=== PATIENT | female | born 1970 | race Caucasian/White ===

== ENCOUNTER 2016-11-19 16:57 | Emergency (ER) | payer BC ==
[~2016-11-19] VITALS: Ht 160 cm; Wt 100.0 kg
[~2016-11-19 16:57] MED LIST: ASACOL400 MG PO; AZATHIOPRINE50 MG PO; CAPITAL WITH C473 ML PO; CIPRO500 MG PO; DELZICOL400 MG PO; FLAGYL500 MG PO; FUROSEMIDE20 MG PO; KLOR-CON M2020 MEQ PO; LEVAQUIN750 MG PO; LIALDA1.2 GM PO; LORCET 5-325 M1 EACH PO; PERCOCET 5/31 TABLET PO; ROCEPHIN1 GM/50 ML IV; ROWASA 4 G4 GM/60 ML PR; TORADOL10 MG PO; TYLENOL REGULA325 MG PO; VITAMIN D2000 INTUN PO; VITAMIN D32000 UNI1 PO; ZESTRIL,PRINIVIL5 MG PO; ZOFRAN ODT4 MG PO
[2016-11-19 18:12] LABS: ADD MIUA? YES; BILIRUBIN NEGATIVE; BLOOD NEGATIVE; COLOR STRAW ((YELLOW)); GLUCOSE (STRIP) NEGATIVE; KETONES 20; LEUKOCYTES TRACE; NITRITE NEGATIVE; PROTEIN (STRIP) NEGATIVE; SPECIFIC GRAVITY 1.006 (1.000-1.030); UROBILINOGEN 0.2 MG/DL (0.2-1.0)
[2016-11-19 18:20] LABS: BACTERIA NONE SEEN /HPF; EPITHELIAL CELLS RARE /HPF; MUCUS NONE SEEN /LPF; RED BLOOD CELLS 0-5 /HPF (0-5); UCUL ADDED? NO; WHITE BLOOD CELLS 0-5 /HPF (0-5)
[2016-11-19 18:34] LABS: CHLORIDE 107 mEq/L (99-109); POTASSIUM 3.7 mEq/L (3.7-5.4); SODIUM 139 mEq/L (136-147)
[2016-11-19 18:37] LABS: GLUCOSE 100 mg/dL (70-99); HEMATOCRIT 43.4 % (36.0-46.0); MCH 32.9 PG (29.0-34.0); MCHC 34.1 G/DL (30.0-36.0); MCV 96.4 FL (83-99); MEAN PLAT.VOLUME 9.9 uM^3 (9.5-12.4); PLATELET COUNT 191 K/uL (156-360); RBC DIS.WIDTH-SD 46.3 % (39-53); WHITE BLOOD COUNT 9.5 K/uL (4.1-10.2)
[2016-11-19 18:38] LABS: ANION GAP 12 MEQ/L (2-14)
[2016-11-19 18:39] LABS: TOTAL BILIRUBIN 1.2 mg/dL (0.0-1.0)
[2016-11-19 18:40] LABS: ALKALINE PHOSPHATASE 74 IU/L (3-129)
[2016-11-19 18:41] LABS: GFR ESTIMATE (CALCULATED) > 59 mL/min/
[2016-11-19 18:42] LABS: DIRECT BILIRUBIN 0.3 mg/dL (0.0-0.3); UREA NITROGEN (BUN) 14 mg/dL (9-23)
[2016-11-19 18:44] LABS: LIPASE 9 U/L (1.0-51.0)
[2016-11-19] MEDS ORDERED: CIPRO500 MG PO (20:23)
[2016-11-19] MEDS ORDERED: KEFLEX500 MG PO (20:24)
[2016-11-19 20:33] VITALS: BP 122/82
== END 2016-11-19 20:44 | disposition home or self-care (01) ==
LOC: EME 16:57
PROVIDERS: Emergency Medicine
DX: N30.00 Acute cystitis without hematuria (principal); Z87.442 Personal history of urinary calculi
CPT/HCPCS: 71020; 74176; 80048; 80076; 81003; 83605; 83690; 85027; 87040; 93005; 99281; 99285; J2405; J7030

== ENCOUNTER 2016-12-04 00:12 | Emergency (ER) | payer BC ==
[~2016-12-04] VITALS: Ht 160 cm; Wt 100.0 kg
[~2016-12-04 00:12] MED LIST changes: +KEFLEX500 MG PO
[2016-12-04 01:19] LABS: ADD MIUA? YES; BILIRUBIN NEGATIVE; BLOOD LARGE; COLOR YELLOW ((YELLOW)); GLUCOSE (STRIP) NEGATIVE; KETONES 5; LEUKOCYTES NEGATIVE; NITRITE NEGATIVE; PROTEIN (STRIP) NEGATIVE; SPECIFIC GRAVITY 1.013 (1.000-1.030); UROBILINOGEN 0.2 MG/DL (0.2-1.0)
[2016-12-04 01:38] LABS: BACTERIA NONE SEEN /HPF; EPITHELIAL CELLS RARE /HPF; MUCUS TRACE /LPF; RED BLOOD CELLS TNTC /HPF (0-5); UCUL ADDED? NO; WHITE BLOOD CELLS 0-5 /HPF (0-5)
[2016-12-04 03:36] LABS: HEMATOCRIT 41.3 % (36.0-46.0); MCH 33.3 PG (29.0-34.0); MCHC 34.9 G/DL (30.0-36.0); MCV 95.4 FL (83-99); MEAN PLAT.VOLUME 9.3 uM^3 (9.5-12.4); PLATELET COUNT 188 K/uL (156-360); RBC DIS.WIDTH-SD 45.7 % (39-53); RED BLOOD COUNT 4.33 M/uL (3.80-5.20); WHITE BLOOD COUNT 7.2 K/uL (4.1-10.2)
[2016-12-04 03:49] LABS: CHLORIDE 108 mEq/L (99-109); POTASSIUM 3.8 mEq/L (3.7-5.4); SODIUM 140 mEq/L (136-147)
[2016-12-04 03:51] LABS: GLUCOSE 92 mg/dL (70-99)
[2016-12-04 03:52] LABS: ANION GAP 12 MEQ/L (2-14)
[2016-12-04 03:55] LABS: ALKALINE PHOSPHATASE 70 IU/L (3-129); GFR ESTIMATE (CALCULATED) > 59 mL/min/
[2016-12-04 03:56] LABS: UREA NITROGEN (BUN) 14 mg/dL (9-23)
[2016-12-04 03:58] LABS: LIPASE 11 U/L (1.0-51.0)
[2016-12-04] MEDS ORDERED: ZOFRAN8 MG PO (04:05)
[2016-12-04] MEDS ORDERED: PERCOCET 5/31 TABLET PO (04:05)
[2016-12-04] MEDS ORDERED: TORADOL10 MG PO (04:18)
[2016-12-04 04:44] VITALS: BP 120/76
== END 2016-12-04 04:45 | disposition home or self-care (01) ==
LOC: EME 00:12
PROVIDERS: Emergency Medicine
DX: N23 Unspecified renal colic (principal); R31.9 Hematuria, unspecified; K51.90 Ulcerative colitis, unspecified, without complications; M17.0 Bilateral primary osteoarthritis of knee; Z87.442 Personal history of urinary calculi; F32.9 Major depressive disorder, single episode, unspecified
CPT/HCPCS: 80053; 81003; 83605; 83690; 85027; 87040; 99281; 99285; J1885; J2405; J7030

== ENCOUNTER 2017-09-09 15:50 | Emergency (ER) | payer BC ==
[~2017-09-09] VITALS: Ht 157.5 cm; Wt 100.9 kg
[~2017-09-09 15:50] MED LIST changes: +ZOFRAN8 MG PO
[2017-09-09 16:47] LABS: BASOPHIL (%) 0.7 % (0-1); BASOPHIL COUNT 0.1 K/uL (0-0.1); EOSINOPHIL (%) 0.3 % (0-5); HEMATOCRIT 41.9 % (36.0-46.0); HEMOGLOBIN 15.1 G/DL (11.9-15.5); IMMATURE GRANULOCYTE (%) 0.1 % (0.0-0.7); LYMPHOCYTE COUNT 0.6 K/uL (1.0-2.8); MCH 34.3 PG (29.0-34.0); MCV 95.2 FL (83-99); MONOCYTE (%) 5.7 % (3-12); MONOCYTE COUNT 0.4 K/uL (0-0.8); NEUTROPHIL (%) 85.2 % (45-76); PLATELET COUNT 196 K/uL (156-360); RBC DIS.WIDTH-SD 45.6 % (39-53)
[2017-09-09 16:57] LABS: ALBUMIN 4.6 g/dL (3.2-4.8)
[2017-09-09 16:58] LABS: CHLORIDE 109 mEq/L (99-109); SODIUM 138 mEq/L (136-147)
[2017-09-09 17:00] LABS: GLUCOSE 102 mg/dL (70-99); TOTAL PROTEIN 7.8 g/dL (6.4-8.3)
[2017-09-09 17:02] LABS: TOTAL BILIRUBIN 0.7 mg/dL (0.0-1.0)
[2017-09-09 17:03] LABS: ALKALINE PHOSPHATASE 80 IU/L (3-129)
[2017-09-09 17:04] LABS: CREATININE 0.9 mg/dL (0.6-1.3); GFR ESTIMATE (CALCULATED) > 59 mL/min/
[2017-09-09 17:05] LABS: AST (GOT) 18 IU/L (2-34); UREA NITROGEN (BUN) 17 mg/dL (9-23)
[2017-09-09 17:06] LABS: ALT (GPT) 17 IU/L (3-49)
[2017-09-09 17:12] LABS: QUANTITATIVE HCG < 4.0 MIU/ML
[2017-09-09 17:15] LABS: APPEARANCE CLEAR ((CLEAR)); BILIRUBIN NEGATIVE; BLOOD LARGE; COLOR YELLOW ((YELLOW)); GLUCOSE (STRIP) NEGATIVE; KETONES 5; LEUKOCYTES NEGATIVE; NITRITE NEGATIVE; PROTEIN (STRIP) NEGATIVE; SPECIFIC GRAVITY 1.008 (1.000-1.030); UROBILINOGEN 0.2 MG/DL (0.2-1.0)
[2017-09-09 17:17] LABS: BACTERIA RARE /HPF; EPITHELIAL CELLS RARE /HPF; MUCUS TRACE /LPF; RED BLOOD CELLS TNTC /HPF (0-5); WHITE BLOOD CELLS 0-5 /HPF (0-5)
[2017-09-09] MEDS ORDERED: ZOFRAN4 MG PO (20:47)
[2017-09-09] MEDS ORDERED: TORADOL10 MG PO (20:47)
[2017-09-09 20:57] VITALS: BP 140/88
== END 2017-09-09 20:58 | disposition home or self-care (01) ==
LOC: EME 15:50
PROVIDERS: Emergency Medicine
DX: R10.9 Unspecified abdominal pain (principal); R31.9 Hematuria, unspecified; N28.89 Other specified disorders of kidney and ureter; Z87.442 Personal history of urinary calculi; M19.91 Primary osteoarthritis, unspecified site; F32.9 Major depressive disorder, single episode, unspecified; Z90.710 Acquired absence of both cervix and uterus; Z87.19 Personal history of other diseases of the digestive system; Z88.5 Allergy status to narcotic agent; Z88.1 Allergy status to other antibiotic agents
CPT/HCPCS: 74177; 76770; 80053; 81003; 84702; 85025; 87086; 99281; 99285; J1885; J2270; J7030

== ENCOUNTER 2018-01-14 14:50 | Observation (INO) | payer BC ==
[~2018-01-14] VITALS: Ht 157.5 cm; Wt 102.3 kg
[~2018-01-14 14:50] MED LIST changes: +AZASAN100 MG PO; +ZOFRAN4 MG PO
[2018-01-14 16:13] LABS: HEMOGLOBIN 15.2 G/DL (11.9-15.5); MCH 34.2 PG (29.0-34.0); MCHC 35.3 G/DL (30.0-36.0); MCV 96.8 FL (83-99); PLATELET COUNT 183 K/uL (156-360); RBC DIS.WIDTH-CV 12.6 % (11.8-14.6); RBC DIS.WIDTH-SD 45.3 % (39-53); RED BLOOD COUNT 4.44 M/uL (3.80-5.20); WHITE BLOOD COUNT 7.1 K/uL (4.1-10.2)
[2018-01-14 16:27] LABS: ALBUMIN 4.6 g/dL (3.2-4.8); CHLORIDE 107 mEq/L (99-109); SODIUM 138 mEq/L (136-147)
[2018-01-14 16:29] LABS: GLUCOSE 108 mg/dL (70-99); TOTAL PROTEIN 7.9 g/dL (6.4-8.3)
[2018-01-14 16:33] LABS: ALKALINE PHOSPHATASE 95 IU/L (3-129); CREATININE 0.9 mg/dL (0.6-1.3); GFR ESTIMATE (CALCULATED) > 59 mL/min/
[2018-01-14 16:34] LABS: UREA NITROGEN (BUN) 11 mg/dL (9-23)
[2018-01-14 16:35] LABS: AST (GOT) 25 IU/L (2-34)
[2018-01-14 16:36] LABS: ALT (GPT) 21 IU/L (3-49); LIPASE 11 U/L (1.0-51.0)
[2018-01-14 16:43] LABS: QUANTITATIVE HCG < 4.0 MIU/ML
[2018-01-14 18:10] LABS: APPEARANCE CLEAR ((CLEAR)); BILIRUBIN NEGATIVE; BLOOD NEGATIVE; COLOR YELLOW ((YELLOW)); GLUCOSE (STRIP) NEGATIVE; KETONES NEGATIVE; LEUKOCYTES TRACE; NITRITE NEGATIVE; PROTEIN (STRIP) NEGATIVE; UROBILINOGEN 0.2 MG/DL (0.2-1.0)
[2018-01-14 18:37] LABS: BACTERIA NONE SEEN /HPF; EPITHELIAL CELLS RARE /HPF; MUCUS NONE SEEN /LPF; RED BLOOD CELLS 0-5 /HPF (0-5); UCUL ADDED? NO; WHITE BLOOD CELLS 0-5 /HPF (0-5)
[2018-01-14] MEDS ORDERED: HIPREX1 GM PO (20:56)
[2018-01-14 23:58] LABS: ALBUMIN 4.3 g/dL (3.2-4.8)
[2018-01-15 00:01] LABS: TOTAL PROTEIN 7.2 g/dL (6.4-8.3)
[2018-01-15 00:03] LABS: TOTAL BILIRUBIN 1.1 mg/dL (0.0-1.0)
[2018-01-15 00:04] LABS: ALKALINE PHOSPHATASE 86 IU/L (3-129)
[2018-01-15 00:06] LABS: AST (GOT) 22 IU/L (2-34); DIRECT BILIRUBIN 0.4 mg/dL (0.0-0.3)
[2018-01-15 00:07] LABS: ALT (GPT) 20 IU/L (3-49)
[2018-01-15 01:05] LABS: C-REACTIVE PROTEIN 5.3 MG/L (0-10)
[2018-01-15 01:16] VITALS: BP 152/75
[2018-01-15 03:24] VITALS: BP 113/61
[2018-01-15 05:52] LABS: BASOPHIL (%) 0.9 % (0-1); BASOPHIL COUNT 0.1 K/uL (0-0.1); EOSINOPHIL COUNT 0.2 K/uL (0-0.3); HEMOGLOBIN 13.5 G/DL (11.9-15.5); IMMATURE GRANULOCYTE (%) 0.2 % (0.0-0.7); LYMPHOCYTE (%) 21.3 % (15-42); LYMPHOCYTE COUNT 1.2 K/uL (1.0-2.8); MCH 33.4 PG (29.0-34.0); MCHC 33.8 G/DL (30.0-36.0); MONOCYTE (%) 11.4 % (3-12); MONOCYTE COUNT 0.6 K/uL (0-0.8); NEUTROPHIL (%) 63.2 % (45-76); NEUTROPHIL COUNT 3.5 K/uL (1.8-6.4); PLATELET COUNT 157 K/uL (156-360); RBC DIS.WIDTH-CV 12.9 % (11.8-14.6); RBC DIS.WIDTH-SD 46.7 % (39-53); RED BLOOD COUNT 4.04 M/uL (3.80-5.20); WHITE BLOOD COUNT 5.6 K/uL (4.1-10.2)
[2018-01-15 06:13] LABS: CHLORIDE 107 MEQ/L (99-109); CREATININE 0.8 MG/DL (0.6-1.3); GFR ESTIMATE (CALCULATED) > 59 mL/min/; GLUCOSE 91 mg/dL (70-99); POTASSIUM 3.8 MEQ/L (3.7-5.4); SODIUM 140 MEQ/L (136-147); UREA NITROGEN (BUN) 10 mg/dL (9-23)
[2018-01-15 07:52] VITALS: BP 127/76
[2018-01-15 11:34] VITALS: BP 127/81
[2018-01-15 15:27] VITALS: BP 123/76
== END 2018-01-15 17:50 | disposition home or self-care (01) ==
LOC: EME 14:50 → 4SOUTH 23:20 → EDOF 23:20 → ENRESERV 23:34 → 4SOUTH 01-15 01:14
PROVIDERS: Emergency Medicine; Hospitalist
DX: K51.90 Ulcerative colitis, unspecified, without complications (principal); R10.12 Left upper quadrant pain; Z87.440 Personal history of urinary (tract) infections; D17.71 Benign lipomatous neoplasm of kidney; M19.90 Unspecified osteoarthritis, unspecified site; Z79.2 Long term (current) use of antibiotics; R93.5 Abnormal findings on diagnostic imaging of other abdominal regions, including retroperitoneum; K76.89 Other specified diseases of liver; Z90.710 Acquired absence of both cervix and uterus; Z90.722 Acquired absence of ovaries, bilateral; Z82.49 Family history of ischemic heart disease and other diseases of the circulatory system; Z83.3 Family history of diabetes mellitus
CPT/HCPCS: 74177; 80048; 80053; 80076; 81003; 83605; 83690; 84702; 85025; 85027; 86140; 87493; 99281; 99285; G0378; J1650; J2405; J3010; J7030; J7500

== ENCOUNTER 2018-02-14 01:03 | Emergency (ER) | payer BC ==
[~2018-02-14] VITALS: Ht 157.5 cm; Wt 101.7 kg
[~2018-02-14 01:03] MED LIST changes: +HIPREX1 GM PO
[2018-02-14 03:22] LABS: HEMATOCRIT 38.6 % (36.0-46.0); HEMOGLOBIN 13.7 G/DL (11.9-15.5); MCH 34.7 PG (29.0-34.0); MCHC 35.5 G/DL (30.0-36.0); MCV 97.7 FL (83-99); RBC DIS.WIDTH-CV 12.8 % (11.8-14.6); RED BLOOD COUNT 3.95 M/uL (3.80-5.20); WHITE BLOOD COUNT 8.1 K/uL (4.1-10.2)
[2018-02-14 03:25] LABS: PLATELET COUNT 213 K/uL (156-360)
[2018-02-14 03:33] LABS: ALBUMIN 4.5 g/dL (3.2-4.8); CHLORIDE 106 mEq/L (99-109); POTASSIUM 3.5 mEq/L (3.7-5.4); SODIUM 144 mEq/L (136-147)
[2018-02-14 03:35] LABS: GLUCOSE 94 mg/dL (70-99); TOTAL PROTEIN 7.8 g/dL (6.4-8.3)
[2018-02-14 03:38] LABS: ALKALINE PHOSPHATASE 87 IU/L (3-129)
[2018-02-14 03:39] LABS: CREATININE 0.9 mg/dL (0.6-1.3); GFR ESTIMATE (CALCULATED) > 59 mL/min/
[2018-02-14 03:40] LABS: AST (GOT) 23 IU/L (2-34); UREA NITROGEN (BUN) 9 mg/dL (9-23)
[2018-02-14 03:41] LABS: ALT (GPT) 18 IU/L (3-49)
[2018-02-14 03:42] LABS: LIPASE 9 U/L (1.0-51.0)
[2018-02-14] MEDS ORDERED: PEPCID20 MG PO (04:29)
[2018-02-14] MEDS ORDERED: ZOFRAN4 MG PO (04:29)
[2018-02-14] MEDS ORDERED: ERYTHROMYC1 APPLICAT BOTH EYES (04:33)
[2018-02-14 04:42] LABS: APPEARANCE CLEAR ((CLEAR)); BILIRUBIN NEGATIVE; BLOOD NEGATIVE; COLOR YELLOW ((YELLOW)); GLUCOSE (STRIP) NEGATIVE; KETONES 20; LEUKOCYTES TRACE; NITRITE NEGATIVE; PROTEIN (STRIP) NEGATIVE; SPECIFIC GRAVITY 1.011 (1.000-1.030); UROBILINOGEN 0.2 MG/DL (0.2-1.0)
[2018-02-14 04:46] LABS: BACTERIA RARE /HPF; EPITHELIAL CELLS 1+ /HPF; MUCUS 1+ /LPF; RED BLOOD CELLS 0-5 /HPF (0-5); UCUL ADDED? NO; WHITE BLOOD CELLS 0-5 /HPF (0-5)
[2018-02-14 05:09] VITALS: BP 145/87
== END 2018-02-14 05:10 | disposition home or self-care (01) ==
LOC: EME 01:03
PROVIDERS: Emergency Medicine
DX: R11.2 Nausea with vomiting, unspecified (principal); T36.1X5A Adverse effect of cephalosporins and other beta-lactam antibiotics, initial encounter; H10.31 Unspecified acute conjunctivitis, right eye; E87.6 Hypokalemia; Z87.442 Personal history of urinary calculi; Z90.710 Acquired absence of both cervix and uterus
CPT/HCPCS: 80053; 81003; 83605; 83690; 85027; 99281; 99285; J2405; J7030